=== PATIENT | female | born 1995 | race Two or more races ===

== ENCOUNTER 2017-12-31 10:35 | Emergency (ER) | payer SELFPAY ==
[~2017-12-31] VITALS: Ht 162.6 cm; Wt 59.4 kg
[2017-12-31 10:36] VITALS: BP 125/74
== END 2017-12-31 11:14 | disposition home or self-care (01) ==
LOC: ER 10:37
DX: J11.1 Influenza due to unidentified influenza virus with other respiratory manifestations (principal)
CPT/HCPCS: A4606; Z7610